=== PATIENT | male | born 1990 | race Two or more races ===

== ENCOUNTER 2019-08-21 10:16 | Inpatient (IN) | payer MEDICAID ==
[~2019-08-21] VITALS: Ht 170.2 cm; Wt 86.2 kg
[2019-08-21] MEDS ORDERED: CARI6CAP PO (11:24)
[2019-08-21] MEDS ORDERED: TRAZ-175 PO (11:24)
[2019-08-21] MEDS ORDERED: CLON0.5T PO (11:24)
[2019-08-21] MEDS ORDERED: BISACODYL 10 MG SUPP PR PRN (11:30)
[2019-08-21] MEDS ORDERED: DOCUSATE 100 MG CAPSULE PO PRN (11:30)
[2019-08-21] MEDS ORDERED: POLYETHYLENE GLYCOL 17 GM PACKET PO PRN (11:30)
[2019-08-21] MEDS ORDERED: ONDANSETRON ODT 4 MG PO PRN (11:30)
[2019-08-21] MEDS ORDERED: PLEASE ENTER HEIGHT AND WEIGHT MC SCH (13:30)
[2019-08-21 14:56] VITALS: BP 125/81
[2019-08-21] MEDS: NICOTINE 14MG/24 HR PATCH.TD24 TD SCH (15:00)
[2019-08-21 15:44] LABS: CHOL/HDL RATIO 3.1; FREE T4 (FREE THYROXINE) 1.58 ng/dL (0.76-1.46); LDL/HDL RATIO 0.6 (0.5-3.0)
[2019-08-21 19:39] VITALS: BP 118/81
[2019-08-21] MEDS: OLANZAPINE 10 MG TABLET PO SCH (20:19)
[2019-08-21] MEDS: TRAZODONE 100MG TABLET PO PRN (20:19)
[2019-08-22] MEDS ORDERED: LORazepam 1MG TABLET PO ONE (01:30)
[2019-08-22] MEDS ORDERED: HALOPERIDOL 5 MG TABLET PO ONE (01:30)
[2019-08-22 07:51] VITALS: BP 104/70
[2019-08-22] MEDS: OLANZAPINE 10 MG TABLET PO SCH ×2 (08:11→20:33)
[2019-08-22] MEDS: NICOTINE 14MG/24 HR PATCH.TD24 TD SCH (16:45)
[2019-08-22 19:41] VITALS: BP 98/59
[2019-08-22] MEDS: TRAZODONE 100MG TABLET PO PRN (20:33)
[2019-08-23 07:44] VITALS: BP 97/62
[2019-08-23] MEDS: OLANZAPINE 10 MG TABLET PO SCH ×2 (08:00→20:17)
[2019-08-23] MEDS: NICOTINE 14MG/24 HR PATCH.TD24 TD SCH (15:00)
[2019-08-23 18:30] LABS: MICROSCOPIC NOT IND
[2019-08-23 18:36] LABS: CULTURE INDICATED? NO
[2019-08-23 19:18] VITALS: BP 104/65
[2019-08-23] MEDS: TRAZODONE 100MG TABLET PO PRN (20:17)
[2019-08-24 07:27] VITALS: BP 103/67
[2019-08-24] MEDS: OLANZAPINE 10 MG TABLET PO SCH ×2 (08:16→20:06)
[2019-08-24] MEDS: ACETAMINOPHEN 325 MG TABLET PO PRN (08:16)
[2019-08-24] MEDS: NICOTINE 14MG/24 HR PATCH.TD24 TD SCH (14:09)
[2019-08-24 19:26] VITALS: BP 115/82
[2019-08-24] MEDS: TRAZODONE 100MG TABLET PO PRN (20:06)
[2019-08-25 07:29] VITALS: BP 126/85
[2019-08-25] MEDS: OLANZAPINE 10 MG TABLET PO SCH ×2 (08:28→20:05)
[2019-08-25] MEDS: NICOTINE 14MG/24 HR PATCH.TD24 TD SCH (15:00)
[2019-08-25] MEDS: ACETAMINOPHEN 325 MG TABLET PO PRN (15:14)
[2019-08-25 19:46] VITALS: BP 132/82
[2019-08-25] MEDS: TRAZODONE 100MG TABLET PO PRN (20:05)
[2019-08-25] MEDS: HYDROXYZINE PAMOATE 50MG CAP PO SCH (20:05)
[2019-08-26 07:27] VITALS: BP 127/83
[2019-08-26] MEDS: HYDROXYZINE PAMOATE 50MG CAP PO SCH ×2 (08:35→20:10)
[2019-08-26] MEDS: ACETAMINOPHEN 325 MG TABLET PO PRN (08:35)
[2019-08-26] MEDS: OLANZAPINE 10 MG TABLET PO SCH ×2 (08:35→20:10)
[2019-08-26] MEDS ORDERED: PALIPERIDONE PALMITATE 156 MG/ML IM ONE ×2 (09:00→11:00)
[2019-08-26] MEDS ORDERED: NICO-486 TD (14:37)
[2019-08-26] MEDS ORDERED: HYDR50CA2 PO (14:37)
[2019-08-26] MEDS ORDERED: OLAN10TA9 PO (14:37)
[2019-08-26] MEDS: NICOTINE 14MG/24 HR PATCH.TD24 TD SCH (14:49)
[2019-08-26] MEDS ORDERED: BENZ1TAB61 PO (15:01)
[2019-08-26 19:47] VITALS: BP 139/84
[2019-08-26] MEDS ORDERED: BENZTROPINE 1 MG TABLET PO SCH (21:00)
[2019-08-27] MEDS: OLANZAPINE 10 MG TABLET PO SCH (08:32)
[2019-08-27] MEDS: HYDROXYZINE PAMOATE 50MG CAP PO SCH (08:32)
== END 2019-08-27 09:55 | disposition home or self-care (01) | DRG 750 ==
LOC: 3E 12:58
PROVIDERS: ADMIT Psychiatry & Neurology Psychosomatic Medicine; ATTEND Psychiatry & Neurology Psychosomatic Medicine
DX: F20.0 Paranoid schizophrenia (principal); F15.20 Other stimulant dependence, uncomplicated; R45.850 Homicidal ideations; F17.200 Nicotine dependence, unspecified, uncomplicated; F12.10 Cannabis abuse, uncomplicated
CPT/HCPCS: 36415; 71045; 80061; 81003; 84439; 84443; 93005; J2426

== ENCOUNTER 2020-01-22 17:47 | Inpatient (IN) | payer MEDICAID ==
[~2020-01-22] VITALS: Ht 170.2 cm; Wt 69.0 kg
[~2020-01-22 17:47] MED LIST: BENZ1TAB61 PO; CARI6CAP PO; CLON0.5T PO; HYDR50CA2 PO; NICO-486 TD; OLAN10TA9 PO; TRAZ-175 PO
[2020-01-22] MEDS ORDERED: POLYETHYLENE GLYCOL 17 GM PACKET PO PRN (20:30)
[2020-01-22] MEDS ORDERED: BISACODYL 10 MG SUPP PR PRN (20:30)
[2020-01-22] MEDS ORDERED: ACETAMINOPHEN 325 MG TABLET PO PRN (20:30)
[2020-01-22] MEDS ORDERED: DOCUSATE 100 MG CAPSULE PO PRN (20:30)
[2020-01-22] MEDS ORDERED: ONDANSETRON ODT 4 MG PO PRN (20:30)
[2020-01-22 21:42] VITALS: BP 117/87
[2020-01-22] MEDS ORDERED: PLEASE ENTER HEIGHT AND WEIGHT MC SCH (22:00)
[2020-01-23] MEDS ORDERED: OLAN5TAB3 PO (06:12)
[2020-01-23] MEDS ORDERED: RISP2TAB35 PO (06:13)
[2020-01-23 07:36] VITALS: BP 118/68
[2020-01-23 09:22] LABS: BASOPHILS # (AUTO) 0.05 x10^3/uL (0-0.1); BASOPHILS % (AUTO) 1 % (0-1); EOSINOPHILS # (AUTO) 0.04 x10^3/uL (0-0.4); EOSINOPHILS % (AUTO) 1 % (1-7); LYMPHOCYTES # (AUTO) 1.31 x10^3/uL (1-3.4); LYMPHOCYTES % (AUTO) 17 % (22-44); MD NO; MEAN CORPUSCULAR HEMOGLOBIN 28.7 pg (27.5-34.5); MEAN CORPUSCULAR HGB CONC 33.4 g/dL (33.2-36.2); MEAN PLATELET VOLUME 8.1 fL (7.4-10.4); MONOCYTES # (AUTO) 0.32 x10^3/uL (0.2-0.8); MONOCYTES % (AUTO) 4 % (2-9); NEUTROPHILS # (AUTO) 5.79 x10^3/uL (1.8-6.8); NEUTROPHILS % (AUTO) 77 % (42-75); PLATELET COUNT 266 x10^3/uL (130-400); RED BLOOD COUNT 5.66 x10^6/uL (4.38-5.82)
[2020-01-23 09:40] LABS: ALBUMIN 3.7 g/dL (3.4-5.0); ANION GAP 8 mmol/L (5-15); CALCIUM 8.9 mg/dL (8.5-10.1); CHLORIDE 108 mmol/L (98-107)
[2020-01-23 10:05] LABS: ALANINE AMINOTRANSFERASE 32 U/L (12-78); ALKALINE PHOSPHATASE 115 U/L (45-117); BILIRUBIN, DIRECT 0.1 mg/dL (0.1-0.2); BILIRUBIN,INDIRECT 0.2 mg/dL (0.0-2.0); BILIRUBIN,TOTAL 0.3 mg/dL (0.2-1.0); CHOL/HDL RATIO 2.1; CHOLESTEROL, TOTAL 109 mg/dL (140-239); CREATININE 0.88 mg/dL (0.7-1.3); HDL CHOL % 49 % (26-37); HDL CHOLESTEROL (DIRECT) 53 mg/dL (40-60); LDL CHOLESTEROL,CALCULATED 32 mg/dL (54-169); LDL/HDL RATIO 0.6 (0.5-3.0); TOTAL PROTEIN 8.2 g/dL (6.4-8.2); TRIGLYCERIDES 119 mg/dL (50-200); VLDL CHOLESTEROL 24 mg/dL (0-25)
[2020-01-23] MEDS: BENZTROPINE 1 MG TABLET PO SCH ×2 (18:45→20:41)
[2020-01-23 19:15] VITALS: BP 127/87
[2020-01-23] MEDS: OLANZAPINE ODT 10MG PO SCH (20:41)
[2020-01-23] MEDS: RISPERIDONE 1 MG TABLET PO SCH (20:41)
[2020-01-23] MEDS: LORazepam 1MG TABLET PO PRN (23:31)
[2020-01-24 07:00] VITALS: BP 115/74
[2020-01-24] MEDS: BENZTROPINE 1 MG TABLET PO SCH ×2 (09:12→20:43)
[2020-01-24] MEDS: RISPERIDONE 1 MG TABLET PO SCH ×2 (09:12→20:43)
[2020-01-24 10:09] LABS: MICROSCOPIC NOT IND
[2020-01-24 19:26] VITALS: BP 115/73
[2020-01-24] MEDS: OLANZAPINE ODT 10MG PO SCH (20:44)
[2020-01-24] MEDS: LORazepam 1MG TABLET PO PRN (23:02)
[2020-01-25 07:44] VITALS: BP 109/76
[2020-01-25] MEDS: RISPERIDONE 1 MG TABLET PO SCH (10:07)
[2020-01-25] MEDS: BENZTROPINE 1 MG TABLET PO SCH ×2 (10:07→21:00)
[2020-01-25] MEDS ORDERED: ARIPIPRAZOLE 400 MG INJ NC IM ONE (15:30)
[2020-01-25] MEDS: ARIPIPRAZOLE 5 MG TABLET PO SCH (16:29)
[2020-01-25 19:34] VITALS: BP_SYST 95
[2020-01-25] MEDS: RISPERIDONE 2 MG TABLET PO SCH (21:00)
[2020-01-25] MEDS: OLANZAPINE ODT 10MG PO SCH (21:00)
[2020-01-26] MEDS: LORazepam 1MG TABLET PO PRN ×2 (03:37→16:15)
[2020-01-26 07:35] VITALS: BP 123/87
[2020-01-26] MEDS: ARIPIPRAZOLE 5 MG TABLET PO SCH (09:24)
[2020-01-26] MEDS: BENZTROPINE 1 MG TABLET PO SCH ×2 (09:24→19:58)
[2020-01-26] MEDS: RISPERIDONE 2 MG TABLET PO SCH ×2 (09:24→19:59)
[2020-01-26] MEDS: OLANZAPINE ODT 10MG PO SCH (19:58)
[2020-01-27 07:49] VITALS: BP 129/91
[2020-01-27] MEDS: BENZTROPINE 1 MG TABLET PO SCH ×2 (08:34→20:02)
[2020-01-27] MEDS: RISPERIDONE 2 MG TABLET PO SCH ×2 (08:35→20:02)
[2020-01-27] MEDS: ARIPIPRAZOLE 5 MG TABLET PO SCH (08:36)
[2020-01-27] MEDS: LORazepam 1MG TABLET PO PRN ×2 (11:44→20:02)
[2020-01-27 19:20] VITALS: BP 126/84
[2020-01-27] MEDS: OLANZAPINE ODT 10MG PO SCH (20:02)
[2020-01-28 07:43] VITALS: BP 134/76
[2020-01-28] MEDS: BENZTROPINE 1 MG TABLET PO SCH ×2 (08:33→20:03)
[2020-01-28] MEDS: ARIPIPRAZOLE 5 MG TABLET PO SCH (08:34)
[2020-01-28] MEDS: RISPERIDONE 2 MG TABLET PO SCH (08:34)
[2020-01-28] MEDS ORDERED: ARIPIPRAZOLE 400 MG INJ NC IM ONE (09:00)
[2020-01-28] MEDS ORDERED: BENZ1TAB61 PO (14:13)
[2020-01-28] MEDS ORDERED: ARIP5TAB13 PO (14:13)
[2020-01-28] MEDS ORDERED: OLAN10TA7 PO (14:13)
[2020-01-28 19:39] VITALS: BP 123/86
[2020-01-28] MEDS: LORazepam 1MG TABLET PO PRN (20:42)
[2020-01-28] MEDS ORDERED: OLANZAPINE ODT 10MG PO SCH (21:00)
[2020-01-29] MEDS: LORazepam 1MG TABLET PO PRN (09:31)
[2020-01-29] MEDS: ARIPIPRAZOLE 5 MG TABLET PO SCH (09:31)
[2020-01-29] MEDS: BENZTROPINE 1 MG TABLET PO SCH (09:31)
== END 2020-01-29 11:45 | disposition home or self-care (01) | DRG 750 ==
LOC: 3E 21:45
PROVIDERS: ADMIT Psychiatry & Neurology Psychosomatic Medicine; ATTEND Psychiatry & Neurology Psychosomatic Medicine
DX: F20.0 Paranoid schizophrenia (principal); F15.20 Other stimulant dependence, uncomplicated; F12.10 Cannabis abuse, uncomplicated; F17.210 Nicotine dependence, cigarettes, uncomplicated; Z79.899 Other long term (current) drug therapy
CPT/HCPCS: 36415; 71045; 80048; 80061; 80076; 81003; 82607; 84439; 84443; 85025; 93005

== ENCOUNTER 2020-08-07 16:56 | Emergency (ER) | payer MEDICAID ==
[~2020-08-07] VITALS: Ht 170.2 cm; Wt 81.8 kg
[~2020-08-07 16:56] MED LIST changes: +ARIP5TAB13 PO; +OLAN10TA7 PO; +OLAN5TAB3 PO; +RISP2TAB35 PO
--- NOTE | 2020-08-07 17:05 | NUR ---
PT TO ROOM FROM LOBBY, C/O SI & ANXIETY (NO PLAN), DENIES HI & VISUAL/AUDITORY HALLUC, HX/O ANXIETY & SCHITZOPHRENIA. PT CHANGED INTO GOWN, CALM & COOPERATIVE, FLAT AFFECT BUT RESPONDS APPROP TO STAFF, NAD, COMFORT MEASURES PROVIDED, PT IN SAFE ENVIRONMENT, SITTER IN VIEW, ALL PERSONAL BELONGINGS (CLOTHES/SHOES) X1 BAG PLACED IN LOCKER- DENIES VALUABLES.
[2020-08-07 17:49] LABS: AMPHETAMINE SCREEN, URINE Positive (Negative); BARBITURATE SCREEN, URINE Negative (Negative); BENZODIAZEPINE SCREEN, URINE Negative (Negative); CANNABINOID SCREEN, URINE Negative (Negative); COCAINE SCREEN, URINE Negative (Negative); METHADONE SCREEN, URINE Negative (Negative); OPIATE SCREEN, URINE Negative (Negative)
--- NOTE | 2020-08-07 17:50 | NUR ---
PSYCH [facility] AT BS
[2020-08-07 17:57] LABS: BASOPHILS % (AUTO) 1 % (0-1); EOSINOPHILS % (AUTO) 2 % (1-7); LYMPHOCYTES % (AUTO) 23 % (22-44); MEAN CORPUSCULAR HEMOGLOBIN 29.6 pg (27.5-34.5); MEAN CORPUSCULAR HGB CONC 34.2 g/dL (33.2-36.2); MEAN PLATELET VOLUME 8.7 fL (7.4-10.4); MONOCYTES % (AUTO) 6 % (2-9); NEUTROPHILS % (AUTO) 68 % (42-75); PLATELET COUNT 235 x10^3/uL (130-400); RED BLOOD COUNT 4.82 x10^6/uL (4.38-5.82); RED CELL DISTRIBUTION WIDTH 13.5 % (9.4-14.8)
--- NOTE | 2020-08-07 18:01 | NUR ---
PT LAYING ON GURNEY AWAKE, CALM & COOPERATIVE, RESPONDS APPROP TO STAFF, NAD, COMFORT MEASURES PROVIDED, PT REMAINS IN SAFE ENVIRONMENT, SITTER IN VIEW.
[2020-08-07 18:02] LABS: ALANINE AMINOTRANSFERASE 24 U/L (12-78); ALBUMIN 3.2 g/dL (3.4-5.0); ANION GAP 4 mmol/L (5-15); CALCIUM 8.6 mg/dL (8.5-10.1); CHLORIDE 111 mmol/L (98-107)
[2020-08-07 18:03] LABS: MD NO
[2020-08-07 18:04] LABS: ALKALINE PHOSPHATASE 129 U/L (45-117); BILIRUBIN,TOTAL 0.2 mg/dL (0.2-1.0); TOTAL PROTEIN 6.8 g/dL (6.4-8.2)
[2020-08-07 18:14] LABS: SALICYLATE LEVEL < 1.7 mg/dL (2.8-20.0)
--- NOTE | 2020-08-07 18:51 | NUR ---
BEDSIDE REPORT FROM LINDY CORTES, PT CARE TRANSFERRED AT THIS TIME.
--- NOTE | 2020-08-07 18:57 | NUR ---
REPORT GIVEN TO ARNEL CORTES
--- NOTE | 2020-08-07 19:29 | NUR ---
PT RESTING ON GURNEY, APPEARS COMFORTABLE. NAD, PT PROVIDED ADDITIONAL WARM BLANKETS FOR COMFORT, DENIES ADDITIONAL NEEDS AT THIS TIME. SI PRECAUTIONS IN PLACE, SITTER IN LINE OF SIGHT, WCTM.
[2020-08-07 19:30] VITALS: BP 124/82
[2020-08-07] MEDS ORDERED: OLANZAPINE 10 MG INJ IM PRN (20:00)
[2020-08-07] MEDS ORDERED: PALIPERIDONE 6 MG TAB.ER.24 PO SCH (20:00)
--- NOTE | 2020-08-07 20:18 | NUR ---
Spoke with U regarding accepting patient to unit. U will review.
--- NOTE | 2020-08-07 20:53 | NUR ---
PT MEDICATED PER SEP, NAD, PROVIDED SANDWICH FOR DINNER AND WATER, DENIES ADDITIONAL NEEDS, NO CHANGE IN CONDITION, SITTER IN LINE OF SIGHT, SI PRECAUTIONS IN PLACE, WCTM.
--- NOTE | 2020-08-07 21:55 | NUR ---
PT SWABBED FOR COVID, TOLERATED WELL, SWAB WALKED TO LAB, NAD, PT RESTING ON GURNEY, NO CHANGES IN CONDITION, EVEN AND UNLABORED RESPIRATIONS, WCTM. Addendum: 08/07/20 at 2156 by LOU SI PRECAUTIONS IN PLACE, SITTER IN LINE OF SIGHT.
--- NOTE | 2020-08-07 22:35 | NUR ---
PT RESTING ON STOMACH ON GURNEY, EYES CLOSED, EVEN AND UNLABORED RESPIRATIONS NOTED, SI PRECAUTIONS IN PLACE, SITTER IN LINE OF SIGHT. WCTM.
--- NOTE | 2020-08-07 23:50 | NUR ---
PT RESTING ON STOMACH ON GURNEY, EYES CLOSED, EVEN AND UNLABORED RESPIRATIONS NOTED, SI PRECAUTIONS IN PLACE, SITTER IN LINE OF SIGHT. WCTM.
--- NOTE | 2020-08-08 00:34 | NUR ---
REPORT CALLED TO DANIELLE CORTES, PT CARE TO BE TRANSFERRED UPON ARRIVAL TO THE FLOOR.
[2020-08-08] MEDS ORDERED: HALO100A3 IM (12:03)
[2020-08-08] MEDS ORDERED: HYDR50TA99 PO (12:03)
[2020-08-08] MEDS ORDERED: QUET400T4 PO (12:03)
[2020-08-08] MEDS ORDERED: RISP3TAB24 PO (12:03)
[2020-08-08] MEDS ORDERED: HALO100A2 IM (12:04)
== END 2020-08-08 00:52 ==
LOC: ED 17:17
DX: F20.1 Disorganized schizophrenia (principal); Z20.828 Contact with and (suspected) exposure to other viral communicable diseases; R45.851 Suicidal ideations; F15.10 Other stimulant abuse, uncomplicated; F41.9 Anxiety disorder, unspecified; F17.210 Nicotine dependence, cigarettes, uncomplicated
CPT/HCPCS: 36415; 80053; 80299; 80307; 80320; 80329; 85025; 87635; 99285; 99406; G0480

== ENCOUNTER 2020-08-08 00:08 | Inpatient (IN) | payer MEDICAID ==
[~2020-08-08] VITALS: Ht 170.2 cm; Wt 79.4 kg
[2020-08-08] MEDS ORDERED: BISACODYL 10 MG SUPP PR PRN (01:00)
[2020-08-08] MEDS ORDERED: DOCUSATE 100 MG CAPSULE PO PRN (01:00)
[2020-08-08] MEDS ORDERED: ONDANSETRON ODT 4 MG PO PRN (01:00)
[2020-08-08] MEDS ORDERED: POLYETHYLENE GLYCOL 17 GM PACKET PO PRN (01:00)
[2020-08-08 02:01] VITALS: BP 126/87
[2020-08-08 07:15] VITALS: BP_SYST 102; BP_SYST 116; BP_DIAS 70; BP_DIAS 81
[2020-08-08] MEDS ORDERED: NICOTINE 14MG/24 HR PATCH.TD24 TD ONE (09:00)
[2020-08-08] MEDS: PALIPERIDONE 6 MG TAB.ER.24 PO SCH (09:17)
[2020-08-08] MEDS ORDERED: DIPHENHYDRAMINE 50 MG/ML, 1ML ONE (09:51)
[2020-08-08] MEDS ORDERED: LORazepam 2 MG/ML, 1ML ONE (09:51)
[2020-08-08] MEDS ORDERED: LORazepam 2 MG/ML, 1ML IM ONE (10:30)
[2020-08-08] MEDS ORDERED: DIPHENHYDRAMINE 50 MG/ML, 1ML IM ONE (10:30)
[2020-08-08] MEDS ORDERED: RISP3TAB24 PO (12:03)
[2020-08-08] MEDS ORDERED: HYDR50TA99 PO (12:03)
[2020-08-08] MEDS ORDERED: QUET400T4 PO (12:03)
[2020-08-08] MEDS ORDERED: HALO100A3 IM (12:03)
[2020-08-08] MEDS ORDERED: HALO100A2 IM (12:04)
[2020-08-08 19:15] VITALS: BP 124/86
[2020-08-09 07:18] VITALS: BP 125/83
[2020-08-09] MEDS: PALIPERIDONE 6 MG TAB.ER.24 PO SCH (08:21)
[2020-08-09 09:44] LABS: FREE T4 (FREE THYROXINE) 1.15 ng/dL (0.76-1.46); LDL/HDL RATIO 0.6 (0.5-3.0)
[2020-08-09] MEDS ORDERED: QUETIAPINE 25MG TABLET ONE (10:46)
[2020-08-09] MEDS: QUETIAPINE 25MG TABLET PO PRN ×2 (10:49→20:49)
[2020-08-09] MEDS: NICOTINE 14MG/24 HR PATCH.TD24 TD SCH (11:18)
[2020-08-09] MEDS: HYDROXYZINE PAMOATE 50MG CAP PO PRN (15:36)
[2020-08-09 19:50] VITALS: BP 132/80
[2020-08-09] MEDS ORDERED: OLANZAPINE 10 MG INJ IM ONE ×2 (21:10→21:30)
[2020-08-10] MEDS: HYDROXYZINE PAMOATE 50MG CAP PO PRN ×4 (00:17→16:58)
[2020-08-10] MEDS ORDERED: LORazepam 2 MG/ML, 1ML ONE (00:32)
[2020-08-10] MEDS ORDERED: HALOPERIDOL 5 MG/ML ONE (00:33)
[2020-08-10] MEDS: HALOPERIDOL 5 MG/ML IM PRN ×2 (00:50→20:40)
[2020-08-10] MEDS: LORazepam 2 MG/ML, 1ML IM PRN ×2 (00:50→20:40)
[2020-08-10 07:47] VITALS: BP 125/83
[2020-08-10] MEDS: PALIPERIDONE 6 MG TAB.ER.24 PO SCH (08:21)
[2020-08-10] MEDS: QUETIAPINE 25MG TABLET PO PRN ×2 (09:20→16:16)
[2020-08-10] MEDS: NICOTINE 14MG/24 HR PATCH.TD24 TD SCH (11:09)
[2020-08-10 19:39] VITALS: BP 106/74
[2020-08-11 07:33] VITALS: BP 111/75
[2020-08-11] MEDS: PALIPERIDONE 6 MG TAB.ER.24 PO SCH (08:44)
[2020-08-11] MEDS: HYDROXYZINE PAMOATE 50MG CAP PO PRN ×2 (09:24→19:19)
[2020-08-11] MEDS: NICOTINE 14MG/24 HR PATCH.TD24 TD SCH (11:00)
[2020-08-11] MEDS ORDERED: PALIPERIDONE PALMITATE 234 MG/1.5 ML IM ONE ×2 (14:00→16:00)
[2020-08-11] MEDS: TRIHEXYPHENIDYL 2MG TABLET PO SCH ×2 (14:58→19:19)
[2020-08-11] MEDS: QUETIAPINE 25MG TABLET PO PRN (19:19)
[2020-08-11] MEDS: ACETAMINOPHEN 325 MG TABLET PO PRN (19:19)
[2020-08-11 19:42] VITALS: BP 124/87
[2020-08-11] MEDS ORDERED: DIAZEPAM 10 MG TABLET ONE (21:25)
[2020-08-11] MEDS ORDERED: DIAZEPAM 10 MG TABLET PO ONE (21:30)
[2020-08-12 07:18] VITALS: BP 114/77
[2020-08-12] MEDS: TRIHEXYPHENIDYL 2MG TABLET PO SCH ×2 (09:20→19:20)
[2020-08-12] MEDS: PALIPERIDONE 6 MG TAB.ER.24 PO SCH (09:20)
[2020-08-12] MEDS: QUETIAPINE 25MG TABLET PO PRN ×2 (10:45→19:20)
[2020-08-12] MEDS: NICOTINE 14MG/24 HR PATCH.TD24 TD SCH ×2 (10:49→19:28)
[2020-08-12] MEDS: HYDROXYZINE PAMOATE 50MG CAP PO PRN ×2 (11:22→19:20)
[2020-08-12] MEDS ORDERED: OLANZAPINE 10 MG INJ IM ONE ×2 (12:09→12:30)
[2020-08-12] MEDS: LORazepam 2 MG/ML, 1ML IM SCH ×2 (12:31→12:37)
[2020-08-12] MEDS: ACETAMINOPHEN 325 MG TABLET PO PRN (16:01)
[2020-08-12] MEDS ORDERED: PALIPERIDONE PALMITATE 234 MG/1.5 ML IM ONE (16:30)
[2020-08-12 20:13] VITALS: BP 121/86
[2020-08-13] MEDS: HYDROXYZINE PAMOATE 50MG CAP PO PRN ×2 (00:54→07:33)
[2020-08-13] MEDS: QUETIAPINE 25MG TABLET PO PRN ×2 (03:24→11:14)
[2020-08-13] MEDS: PALIPERIDONE 6 MG TAB.ER.24 PO SCH (07:33)
[2020-08-13] MEDS: TRIHEXYPHENIDYL 2MG TABLET PO SCH ×2 (07:33→20:23)
[2020-08-13] MEDS: NICOTINE 14MG/24 HR PATCH.TD24 TD SCH (11:15)
[2020-08-13] MEDS ORDERED: LORazepam 1MG TABLET PO ONE (11:30)
[2020-08-14 04:47] LABS: MICROSCOPIC NOT IND
[2020-08-14] MEDS: PALIPERIDONE 6 MG TAB.ER.24 PO SCH (08:46)
[2020-08-14] MEDS: TRIHEXYPHENIDYL 2MG TABLET PO SCH ×2 (08:46→19:56)
[2020-08-14] MEDS: HYDROXYZINE PAMOATE 50MG CAP PO PRN ×3 (08:46→21:32)
[2020-08-14] MEDS: ACETAMINOPHEN 325 MG TABLET PO PRN (08:46)
[2020-08-14] MEDS: QUETIAPINE 25MG TABLET PO PRN ×3 (08:47→21:33)
[2020-08-14 08:49] VITALS: BP 124/86
[2020-08-14] MEDS: NICOTINE 14MG/24 HR PATCH.TD24 TD SCH (08:50)
[2020-08-14] MEDS ORDERED: DIAZEPAM 10 MG TABLET PO ONE (13:00)
[2020-08-14 20:11] VITALS: BP 136/89
[2020-08-15] MEDS: TRIHEXYPHENIDYL 2MG TABLET PO SCH ×2 (07:52→20:03)
[2020-08-15] MEDS: NICOTINE 14MG/24 HR PATCH.TD24 TD SCH (07:52)
[2020-08-15] MEDS: PALIPERIDONE 6 MG TAB.ER.24 PO SCH (07:52)
[2020-08-15] MEDS: QUETIAPINE 25MG TABLET PO PRN ×3 (07:53→23:03)
[2020-08-15] MEDS: HYDROXYZINE PAMOATE 50MG CAP PO PRN ×3 (07:54→23:03)
[2020-08-15 19:48] VITALS: BP 116/78
[2020-08-16] MEDS: QUETIAPINE 25MG TABLET PO PRN ×2 (06:35→12:00)
[2020-08-16] MEDS: HYDROXYZINE PAMOATE 50MG CAP PO PRN ×2 (06:35→12:00)
[2020-08-16 07:15] VITALS: BP 125/81
[2020-08-16] MEDS ORDERED: LORazepam 1MG TABLET PO ONE (08:00)
[2020-08-16] MEDS: TRIHEXYPHENIDYL 2MG TABLET PO SCH (08:52)
[2020-08-16] MEDS: PALIPERIDONE 6 MG TAB.ER.24 PO SCH (08:52)
[2020-08-16] MEDS: NICOTINE 14MG/24 HR PATCH.TD24 TD SCH (08:52)
[2020-08-16] MEDS ORDERED: PALI6TAB5 PO (15:25)
[2020-08-16] MEDS ORDERED: HYDR50CA2 PO (15:25)
[2020-08-16] MEDS ORDERED: NICO-486 TD (15:25)
[2020-08-16] MEDS ORDERED: TRIH2TAB3 PO (15:25)
[2020-08-16] MEDS ORDERED: DOXE25CA PO (15:29)
[2020-08-16] MEDS ORDERED: PALIPERIDONE PALMITATE 156 MG/ML IM ONE (15:30)
[2020-08-16] MEDS ORDERED: DOXEPIN 25 MG CAPSULE PO SCH (21:00)
[2020-08-16] MEDS ORDERED: QUETIAPINE 100MG TABLET PO SCH (21:00)
== END 2020-08-16 16:00 | disposition home or self-care (01) | DRG 750 ==
LOC: 3E 00:08
PROVIDERS: ADMIT Psychiatry & Neurology Psychosomatic Medicine; ATTEND Psychiatry & Neurology Psychosomatic Medicine
DX: F20.0 Paranoid schizophrenia (principal); R45.851 Suicidal ideations; F15.20 Other stimulant dependence, uncomplicated; F17.210 Nicotine dependence, cigarettes, uncomplicated; F60.9 Personality disorder, unspecified; F41.9 Anxiety disorder, unspecified; F12.10 Cannabis abuse, uncomplicated; G47.00 Insomnia, unspecified; Z79.899 Other long term (current) drug therapy; Z81.8 Family history of other mental and behavioral disorders; Z91.14 Patient's other noncompliance with medication regimen; Z91.19 Patient's noncompliance with other medical treatment and regimen; Z79.891 Long term (current) use of opiate analgesic; Z79.01 Long term (current) use of anticoagulants
CPT/HCPCS: 36415; 71045; 80053; 80061; 80299; 80307; 80320; 80329; 81003; 84439; 84443; 85025; 87635; 93005; 99285; 99406; G0480; J1200; J1630; J2060; J2426

== ENCOUNTER 2021-04-07 09:00 | Emergency (ER) | payer MEDICAID ==
[~2021-04-07] VITALS: Ht 170.2 cm; Wt 80.0 kg
[~2021-04-07 09:00] MED LIST changes: +DOXE25CA PO; +HALO100A2 IM; +HALO100A3 IM; +HYDR50TA99 PO; +OLAN10TA69 PO; -OLAN10TA9 PO; +PALI6TAB5 PO; +QUET400T4 PO; +RISP3TAB24 PO; +TRIH2TAB3 PO
[2021-04-07 09:43] LABS: BASOPHILS % (AUTO) 0 % (0-1); EOSINOPHILS % (AUTO) 1 % (1-7); LYMPHOCYTES % (AUTO) 20 % (22-44); MEAN CORPUSCULAR HEMOGLOBIN 28.7 pg (27.5-34.5); MEAN CORPUSCULAR HGB CONC 33.7 g/dL (33.2-36.2); MEAN PLATELET VOLUME 8.7 fL (7.4-10.4); MONOCYTES % (AUTO) 8 % (2-9); NEUTROPHILS % (AUTO) 70 % (42-75); PLATELET COUNT 186 x10^3/uL (130-400); RED BLOOD COUNT 5.39 x10^6/uL (4.38-5.82); RED CELL DISTRIBUTION WIDTH 13.8 % (9.4-14.8)
[2021-04-07 09:53] LABS: ANION GAP 6 mmol/L (5-15); CALCIUM 8.6 mg/dL (8.5-10.1); CHLORIDE 108 mmol/L (98-107)
[2021-04-07 10:04] LABS: ALANINE AMINOTRANSFERASE 35 U/L (12-78); ALKALINE PHOSPHATASE 119 U/L (45-117); BILIRUBIN,TOTAL 0.5 mg/dL (0.2-1.0); CREATININE 0.87 mg/dL (0.7-1.3); TOTAL PROTEIN 7.9 g/dL (6.4-8.2)
[2021-04-07 10:05] LABS: SALICYLATE LEVEL < 1.7 mg/dL (2.8-20.0)
[2021-04-07 10:55] LABS: AMPHETAMINE SCREEN, URINE Negative (Negative); BARBITURATE SCREEN, URINE Negative (Negative); BENZODIAZEPINE SCREEN, URINE Negative (Negative); CANNABINOID SCREEN, URINE Negative (Negative); COCAINE SCREEN, URINE Negative (Negative); METHADONE SCREEN, URINE Negative (Negative); OPIATE SCREEN, URINE Negative (Negative)
--- NOTE | 2021-04-07 11:10 | NUR ---
Ananth Paz (father) and legal gardian: [phone]
[2021-04-07 11:37] VITALS: BP 131/64
--- NOTE | 2021-04-07 11:38 | NUR ---
PT VERBALIZED DISCHARGE INSTRUCTIONS AND EDUCATION, BUT LEFT PRIOR TO RECEIVING PAPERWORK.
== END 2021-04-07 11:39 | disposition home or self-care (01) ==
LOC: ED 09:22
DX: F20.9 Schizophrenia, unspecified (principal); F41.1 Generalized anxiety disorder; F23 Brief psychotic disorder; R94.31 Abnormal electrocardiogram [ECG] [EKG]
CPT/HCPCS: 36415; 80053; 80299; 80307; 80320; 80329; 84443; 85025; 93005; 99285; G0480

== ENCOUNTER 2021-04-11 15:13 | Emergency (ER) | payer MEDICAID ==
[~2021-04-11] VITALS: Ht 170.2 cm; Wt 75.0 kg
[2021-04-11 15:22] VITALS: BP 120/89
[2021-04-11 15:38] LABS: BASOPHILS % (AUTO) 0 % (0-1); EOSINOPHILS % (AUTO) 1 % (1-7); LYMPHOCYTES % (AUTO) 22 % (22-44); MEAN CORPUSCULAR HEMOGLOBIN 29.4 pg (27.5-34.5); MEAN CORPUSCULAR HGB CONC 34.6 g/dL (33.2-36.2); MEAN PLATELET VOLUME 8.7 fL (7.4-10.4); MONOCYTES % (AUTO) 7 % (2-9); NEUTROPHILS % (AUTO) 70 % (42-75); PLATELET COUNT 188 x10^3/uL (130-400); RED BLOOD COUNT 4.68 x10^6/uL (4.38-5.82); RED CELL DISTRIBUTION WIDTH 13.2 % (9.4-14.8)
[2021-04-11 15:50] LABS: ALANINE AMINOTRANSFERASE 50 U/L (12-78); ALBUMIN 3.3 g/dL (3.4-5.0); ANION GAP 3 mmol/L (5-15); CALCIUM 8.3 mg/dL (8.5-10.1); CHLORIDE 110 mmol/L (98-107); CREATININE 0.72 mg/dL (0.7-1.3)
[2021-04-11 15:52] LABS: ALKALINE PHOSPHATASE 100 U/L (45-117); BILIRUBIN,TOTAL 0.2 mg/dL (0.2-1.0); TOTAL PROTEIN 7.2 g/dL (6.4-8.2)
== END 2021-04-11 22:18 ==
LOC: ED 22:12
DX: R11.2 Nausea with vomiting, unspecified (principal); R19.7 Diarrhea, unspecified; R10.9 Unspecified abdominal pain
CPT/HCPCS: 36415; 80053; 83690; 85025; 99283

== ENCOUNTER 2021-04-13 10:06 | Emergency (ER) | payer MEDICAID ==
[~2021-04-13] VITALS: Ht 170.2 cm; Wt 78.5 kg
[2021-04-13 10:19] VITALS: BP 123/80
--- NOTE | 2021-04-13 12:29 | NUR ---
TRIAGE TECH: NIL FOR NEW SET OF VS
--- NOTE | 2021-04-13 13:10 | NUR ---
NIL X 2
--- NOTE | 2021-04-13 14:15 | NUR ---
NO ANSWER X 3
== END 2021-04-13 14:17 | disposition left against medical advice (07) ==
LOC: ED 10:11
DX: R10.9 Unspecified abdominal pain (principal); Z53.21 Procedure and treatment not carried out due to patient leaving prior to being seen by health care provider